=== PATIENT | female | born 1940 | race Caucasian/White ===

== ENCOUNTER → 2018-06-30 | Outpatient (CLI) | payer MEDICARE, MEDICAID ==
[~2018-06-30] MED LIST: ACET325T14 PO; AMIO200T42 PO; ASPI81TA45 PO; ATOR40TA78 PO; BUDE10.22 INH; CALC-192 PO; CHOL3000 PO; FERR324T5 PO; FLUT16SP NAS; FOLI-17 PO; KETO15CR17 TP; LEVA15HF5 INH; LEVO25TA4 PO; LEVO50TA5 PO; LORA0.5T PO; METH2.5T PO; POTA20TA6 PO; SUCR1TAB PO; WARF3TAB52 PO
[2018-06-30 12:04] LABS: BASOPHILS # (AUTO) 0.03 x10^3/uL (0-0.1); BASOPHILS % (AUTO) 1 % (0-1); EOSINOPHILS # (AUTO) 0.08 x10^3/uL (0-0.4); EOSINOPHILS % (AUTO) 1 % (1-7); LYMPHOCYTES # (AUTO) 1.29 x10^3/uL (1-3.4); LYMPHOCYTES % (AUTO) 23 % (22-44); MD NO; MEAN CORPUSCULAR HEMOGLOBIN 32.9 pg (27.0-34.8); MEAN CORPUSCULAR HGB CONC 32.2 g/dL (32.4-35.8); MEAN CORPUSCULAR VOLUME 102.2 fL (80-100); MEAN PLATELET VOLUME 8.4 fL (7.4-10.4); MONOCYTES # (AUTO) 0.64 x10^3/uL (0.2-0.8); MONOCYTES % (AUTO) 12 % (2-9); NEUTROPHILS # (AUTO) 3.48 x10^3/uL (1.8-6.8); NEUTROPHILS % (AUTO) 63 % (42-75); PLATELET COUNT 225 x10^3/uL (130-400); RED BLOOD COUNT 3.69 x10^6/uL (3.82-5.3); RED CELL DISTRIBUTION WIDTH 16.6 % (9.6-15.2)
[2018-06-30 12:11] LABS: INTERNATIONAL NORMALIZED RATIO 1.82 (0.93-1.1); PROTHROMBIN TIME 18.7 Seconds (9.6-11.5)
== END | disposition home or self-care (01) ==
LOC: STAR 11:00
PROVIDERS: ATTEND Surgery
DX: Z01.818 Encounter for other preprocedural examination (principal); K40.90 Unilateral inguinal hernia, without obstruction or gangrene, not specified as recurrent; R94.31 Abnormal electrocardiogram [ECG] [EKG]
CPT/HCPCS: 36415; 85025; 85610; 85730; 93005

== ENCOUNTER 2018-07-04 11:58 | Observation (INO) | payer MEDICARE, MEDICAID ==
[~2018-07-04] VITALS: Ht 160 cm; Wt 73.7 kg
[~2018-07-04 11:58] MED LIST changes: -ATOR40TA78 PO; -LEVO50TA5 PO; -METH2.5T PO
[2018-07-04] MEDS ORDERED: BUPIVACAINE/PF-EPI 0.5% 1:200K ONE (12:01)
[2018-07-04] MEDS ORDERED: LACTATED RINGERS 1,000 ML IV SCH ×2 (13:10→17:00)
[2018-07-04 13:12] VITALS: BP 163/76
[2018-07-04] MEDS ORDERED: LEVO50TA5 PO (13:24)
[2018-07-04] MEDS ORDERED: METH2.5T PO (13:24)
[2018-07-04] MEDS ORDERED: ATOR40TA78 PO (13:24)
[2018-07-04 13:27] LABS: INTERNATIONAL NORMALIZED RATIO 1.02 (0.93-1.1); PROTHROMBIN TIME 10.7 Seconds (9.6-11.5)
[2018-07-04] MEDS ORDERED: FENTANYL PF 100 MCG/2ML ONE ×2 (14:30→16:15)
[2018-07-04] MEDS ORDERED: SUGAMMADEX 200 MG/2 ML IVPush ONE (14:35)
[2018-07-04] MEDS ORDERED: CEFAZOLIN 1,000 MG ONE (14:35)
[2018-07-04] MEDS ORDERED: PROPOFOL 10 MG/ML, 20ML ONE (14:35)
[2018-07-04] MEDS ORDERED: ROCURONIUM 10MG/ML,5ML ONE (14:35)
[2018-07-04] MEDS ORDERED: DEXAMETHASONE 4 MG/ML, 1ML ONE (14:35)
[2018-07-04] MEDS ORDERED: hydrALAzine 20 MG/ML, 1ML ONE (14:35)
[2018-07-04] MEDS ORDERED: METOPROLOL 1 MG/ML, 5ML IV PRN (15:30)
[2018-07-04] MEDS ORDERED: LORazepam 2 MG/ML, 1ML IVPush PRN (15:30)
[2018-07-04] MEDS ORDERED: hydrALAzine 20 MG/ML, 1ML IV PRN (15:30)
[2018-07-04] MEDS ORDERED: LABETALOL 5MG/ML, 20ML IV PRN (15:30)
[2018-07-04] MEDS ORDERED: ALBUTEROL/IPRATROPIUM 2.5MG/0.5MG, 3 ML NPPB PRN (15:30)
[2018-07-04] MEDS ORDERED: ACETAMINOPHEN 325 MG TABLET PO PRN (15:30)
[2018-07-04] MEDS ORDERED: OXYcodone 5 MG/5 ML ORAL.SOL UDC PO PRN ×2 (15:30→16:30)
[2018-07-04] MEDS: FENTANYL PF 100 MCG/2ML IV PRN ×3 (16:20→16:30)
[2018-07-04] MEDS ORDERED: OXYcodone 5 MG/5 ML ORAL.SOL UDC ONE (16:23)
[2018-07-04] MEDS ORDERED: ONDANSETRON 2MG/ML, 2ML ONE (16:23)
[2018-07-04] MEDS ORDERED: ONDANSETRON 2MG/ML, 2ML IVPush PRN (16:30)
[2018-07-04] MEDS ORDERED: KETOROLAC 30 MG/1 ML IVPush PRN (16:30)
[2018-07-04] MEDS ORDERED: HYDROmorphone 2 MG/ML, 1ML IVPush PRN (16:30)
[2018-07-04] MEDS ORDERED: HYDROmorphone 2 MG/ML, 1ML ONE (16:32)
[2018-07-04] MEDS: HYDROmorphone 2 MG/ML, 1ML IVPush PRN ×2 (16:35→16:40)
[2018-07-04] MEDS ORDERED: KETOROLAC 30 MG/1 ML ONE (16:45)
== END 2018-07-04 20:15 | disposition home or self-care (01) ==
LOC: OUT 11:58 → ORIP 16:14 → 4NOR 17:31
PROVIDERS: ADMIT Surgery; ATTEND Surgery
DX: K40.90 Unilateral inguinal hernia, without obstruction or gangrene, not specified as recurrent (principal); F41.9 Anxiety disorder, unspecified; M19.90 Unspecified osteoarthritis, unspecified site; K21.9 Gastro-esophageal reflux disease without esophagitis; E78.5 Hyperlipidemia, unspecified; I10 Essential (primary) hypertension; I48.0 Paroxysmal atrial fibrillation; M81.0 Age-related osteoporosis without current pathological fracture; G47.33 Obstructive sleep apnea (adult) (pediatric); Z90.49 Acquired absence of other specified parts of digestive tract; Z79.899 Other long term (current) drug therapy; Z88.8 Allergy status to other drugs, medicaments and biological substances
CPT/HCPCS: 36415; 49650; 85610; C1781; G0378; J0360; J0690; J1100; J1170; J1885; J2405; J2704; J3010; J7120; S2900